=== PATIENT | male | born 1945 | race Asian ===

== ENCOUNTER 2021-12-14 15:54 | Inpatient (IN) | payer MEDICARE, MEDICAID ==
[~2021-12-14] VITALS: Ht 165.1 cm; Wt 67.1 kg
[2021-12-14 19:10] VITALS: BP 119/67
[2021-12-14] MEDS ORDERED: ACETAMINOPHEN 325 MG TABLET PO PRN (20:15)
[2021-12-14] MEDS: DOCUSATE SODIUM 100 MG CAPSULE PO SCH (20:29)
[2021-12-14] MEDS: MELATONIN 5 MG TABLET PO PRN (20:29)
[2021-12-14] MEDS: HEPARIN SODIUM,PORCINE 5,000 UNITS/ML VIAL SQ SCH (20:29)
[2021-12-14 20:30] VITALS: BP 123/71
[2021-12-14] MEDS ORDERED: OxyCODONE HCL 5 MG IR TABLET PO PRN (20:30)
[2021-12-14] MEDS: SENNA 187 MG TABLET PO SCH (20:30)
[2021-12-14] MEDS ORDERED: CYCLOBENZAPRINE HCL 10 MG TABLET PO PRN (20:30)
[2021-12-14] MEDS: GABAPENTIN 300 MG CAPSULE PO SCH (20:51)
[2021-12-14] MEDS: ETHYL ALCOHOL 62% ANTISEPTIC NASAL SANITIZER 0.6 ML AMPUL NASAL SCH (21:10)
[2021-12-14] MEDS: ACETAMINOPHEN 325 MG TABLET PO SCH (21:11)
[2021-12-15] MEDS: ACETAMINOPHEN 325 MG TABLET PO SCH ×3 (06:19→21:10)
[2021-12-15 07:31] LABS: BASOPHILS % (AUTO) 0.2 % (0.0-2.0); LYMPHOCYTES # (AUTO) 1.5 K/uL (1.0-4.8); LYMPHOCYTES % (AUTO) 14.2 % (22.0-44.0); MEAN CORPUSCULAR HEMOGLOBIN 29.9 pg (26.0-34.0); MEAN CORPUSCULAR HGB CONC 34.3 G/dL (31.0-37.0); MEAN CORPUSCULAR VOLUME 87 fL (80-100); MONOCYTES # (AUTO) 1.1 K/uL (0.1-1.0); MONOCYTES % (AUTO) 10.8 % (2.0-9.0); NEUTROPHILS # (AUTO) 7.7 K/uL (1.8-7.7); NEUTROPHILS % (AUTO) 72.8 % (40.0-70.0); PLATELET COUNT (AUTO) 262 K/uL (150-450); RED BLOOD CELL COUNT(AUTO) 3.34 MIL/uL (4.50-5.90); RED CELL DISTRIBUTION WIDTH 14.2 % (11.5-14.5)
[2021-12-15 07:54] LABS: ALANINE AMINOTRANSFERASE 110 U/L (12-78); ALBUMIN 2.5 g/dL (3.4-5.0); ALKALINE PHOSPHATASE 57 U/L (46-116); ANION GAP 7 mmol/L (8-16); ASPARTATE AMINOTRANSFERASE 71 U/L (15-37); BILIRUBIN,TOTAL 0.4 mg/dL (0.1-1.0); CALCIUM, TOTAL 8.3 mg/dL (8.8-10.5); CARBON DIOXIDE 27 mmol/L (22-29); CHLORIDE 103 mmol/L (98-107); CREATININE 0.64 mg/dL (0.60-1.30); GLUCOSE,RANDOM 101 mg/dL (70-110); POTASSIUM 4.2 mmol/L (3.5-5.1); SODIUM SERUM 137 mmol/L (136-145); TOTAL PROTEIN, SERUM 5.8 g/dL (6.4-8.2); UREA NITROGEN, BLOOD 16 mg/dL (7-18)
[2021-12-15 07:56] LABS: GLOMERULAR FILTR. RATE CALC > 60 mL/min (>60)
[2021-12-15] MEDS: LOSARTAN POTASSIUM 50 MG TABLET PO SCH (08:01)
[2021-12-15] MEDS: HEPARIN SODIUM,PORCINE 5,000 UNITS/ML VIAL SQ SCH ×3 (08:01→21:04)
[2021-12-15] MEDS: DOCUSATE SODIUM 100 MG CAPSULE PO SCH ×2 (08:01→21:03)
[2021-12-15] MEDS: TAMSULOSIN HCL 0.4 MG CAPSULE PO SCH (08:01)
[2021-12-15] MEDS: GABAPENTIN 300 MG CAPSULE PO SCH ×2 (08:01→21:03)
[2021-12-15] MEDS ORDERED: ASPIRIN 81 MG CHEWABLE TABLET PO SCH (09:00)
[2021-12-15 09:12] VITALS: BP 134/76
[2021-12-15] MEDS: GABAPENTIN 100 MG CAPSULE PO SCH (16:37)
[2021-12-15 17:31] LABS: COVID AG,FIA SOURCE NASAL SWAB
[2021-12-15 21:00] VITALS: BP 142/72
[2021-12-15] MEDS: SENNA 187 MG TABLET PO SCH (21:03)
[2021-12-15] MEDS: ETHYL ALCOHOL 62% ANTISEPTIC NASAL SANITIZER 0.6 ML AMPUL NASAL SCH (21:05)
[2021-12-16] MEDS ORDERED: HYDR25TA PO (01:01)
[2021-12-16] MEDS ORDERED: LOSA-382 PO (01:01)
[2021-12-16] MEDS ORDERED: EZET10TA57 PO (01:01)
[2021-12-16] MEDS: ACETAMINOPHEN 325 MG TABLET PO SCH ×3 (06:03→21:27)
[2021-12-16 07:14] LABS: CHOL/HDL RATIO 4.1 (4.2-7.3)
[2021-12-16 07:40] VITALS: BP 143/77
[2021-12-16] MEDS: TAMSULOSIN HCL 0.4 MG CAPSULE PO SCH (08:12)
[2021-12-16] MEDS: LOSARTAN POTASSIUM 50 MG TABLET PO SCH (08:12)
[2021-12-16] MEDS: DOCUSATE SODIUM 100 MG CAPSULE PO SCH ×2 (08:12→21:25)
[2021-12-16] MEDS: FAMOTIDINE 20 MG TABLET PO SCH (08:12)
[2021-12-16] MEDS: ETHYL ALCOHOL 62% ANTISEPTIC NASAL SANITIZER 0.6 ML AMPUL NASAL SCH ×2 (08:12→21:28)
[2021-12-16] MEDS: GABAPENTIN 100 MG CAPSULE PO SCH ×2 (08:12→15:28)
[2021-12-16] MEDS: HEPARIN SODIUM,PORCINE 5,000 UNITS/ML VIAL SQ SCH ×3 (08:13→21:27)
[2021-12-16 20:00] VITALS: BP 148/87
[2021-12-16] MEDS: GABAPENTIN 300 MG CAPSULE PO SCH (21:26)
[2021-12-16] MEDS: EZETIMIBE 10 MG TABLET PO SCH (21:26)
[2021-12-16] MEDS: SENNA 187 MG TABLET PO SCH (21:28)
[2021-12-17] MEDS: ACETAMINOPHEN 325 MG TABLET PO SCH ×3 (05:56→21:24)
[2021-12-17 07:44] LABS: ALANINE AMINOTRANSFERASE 80 U/L (12-78); ALBUMIN 2.7 g/dL (3.4-5.0); ALKALINE PHOSPHATASE 64 U/L (46-116); ANION GAP 7 mmol/L (8-16); ASPARTATE AMINOTRANSFERASE 31 U/L (15-37); BILIRUBIN,TOTAL 0.3 mg/dL (0.1-1.0); CALCIUM, TOTAL 8.7 mg/dL (8.8-10.5); CARBON DIOXIDE 27 mmol/L (22-29); CHLORIDE 101 mmol/L (98-107); CREATININE 0.62 mg/dL (0.60-1.30); GLUCOSE,RANDOM 110 mg/dL (70-110); SODIUM SERUM 135 mmol/L (136-145); TOTAL PROTEIN, SERUM 6.4 g/dL (6.4-8.2); UREA NITROGEN, BLOOD 12 mg/dL (7-18)
[2021-12-17 07:45] LABS: GLOMERULAR FILTR. RATE CALC > 60 mL/min (>60)
[2021-12-17 08:05] VITALS: BP 154/82
[2021-12-17] MEDS: ETHYL ALCOHOL 62% ANTISEPTIC NASAL SANITIZER 0.6 ML AMPUL NASAL SCH ×2 (08:17→21:41)
[2021-12-17] MEDS: TAMSULOSIN HCL 0.4 MG CAPSULE PO SCH (08:17)
[2021-12-17] MEDS: FAMOTIDINE 20 MG TABLET PO SCH (08:18)
[2021-12-17] MEDS: GABAPENTIN 100 MG CAPSULE PO SCH ×2 (08:18→16:33)
[2021-12-17] MEDS: DOCUSATE SODIUM 100 MG CAPSULE PO SCH ×2 (08:18→21:00)
[2021-12-17] MEDS: HEPARIN SODIUM,PORCINE 5,000 UNITS/ML VIAL SQ SCH ×3 (08:18→21:24)
[2021-12-17] MEDS: LOSARTAN POTASSIUM 50 MG TABLET PO SCH (08:18)
[2021-12-17 20:00] VITALS: BP 127/72
[2021-12-17] MEDS: SENNA 187 MG TABLET PO SCH (21:00)
[2021-12-17] MEDS: EZETIMIBE 10 MG TABLET PO SCH (21:24)
[2021-12-17] MEDS: GABAPENTIN 300 MG CAPSULE PO SCH (21:24)
[2021-12-18] MEDS: ACETAMINOPHEN 325 MG TABLET PO SCH ×3 (06:19→20:34)
[2021-12-18 07:40] VITALS: BP 158/78
[2021-12-18 08:12] LABS: APPEARANCE,URINE HAZY (CLEAR); BILIRUBIN,URINE NEGATIVE (NEGATIVE); GLUCOSE, URINE (UA) NEGATIVE (NEGATIVE); LEUKOCYTE ESTERASE ,URINE LARGE (NEGATIVE); NITRATE,URINE POSITIVE (NEGATIVE); OCCULT BLOOD,URINE SMALL (NEGATIVE); PH,URINE 6.5 (5.0-8.0); PROTEIN,URINE TRACE mg/dL (NEGATIVE); UROBILINOGEN,URINE <=1.0 mg/dL (<=1.0)
[2021-12-18 08:34] LABS: BACTERIA,URINE Many /HPF (None Seen); RBC,URINE 0-2 /HPF (0-2); SQUAMOUS EPITHELIAL CELL,UR Few /LPF (None Seen); WBC,URINE 26-50 /HPF (0-5)
[2021-12-18] MEDS: TAMSULOSIN HCL 0.4 MG CAPSULE PO SCH (08:35)
[2021-12-18] MEDS: DOCUSATE SODIUM 100 MG CAPSULE PO SCH ×2 (08:35→20:32)
[2021-12-18] MEDS: ETHYL ALCOHOL 62% ANTISEPTIC NASAL SANITIZER 0.6 ML AMPUL NASAL SCH ×2 (08:35→20:32)
[2021-12-18] MEDS: GABAPENTIN 100 MG CAPSULE PO SCH ×2 (08:36→16:14)
[2021-12-18] MEDS: LOSARTAN POTASSIUM 50 MG TABLET PO SCH (08:36)
[2021-12-18] MEDS: HEPARIN SODIUM,PORCINE 5,000 UNITS/ML VIAL SQ SCH ×3 (08:36→20:33)
[2021-12-18] MEDS: FAMOTIDINE 20 MG TABLET PO SCH (08:36)
[2021-12-18] MEDS ORDERED: ASPI-1444 PO (12:36)
[2021-12-18] MEDS ORDERED: GABA-529 PO (12:36)
[2021-12-18] MEDS ORDERED: GABA-1181 PO (12:36)
[2021-12-18] MEDS ORDERED: POLY119P3 PO (12:36)
[2021-12-18 20:01] VITALS: BP 142/75
[2021-12-18] MEDS: SENNA 187 MG TABLET PO SCH (20:33)
[2021-12-18] MEDS: EZETIMIBE 10 MG TABLET PO SCH (20:33)
[2021-12-18] MEDS: GABAPENTIN 300 MG CAPSULE PO SCH (20:33)
[2021-12-19] MEDS: ACETAMINOPHEN 325 MG TABLET PO SCH ×3 (06:30→21:13)
[2021-12-19 08:00] VITALS: BP 141/80
[2021-12-19] MEDS: TAMSULOSIN HCL 0.4 MG CAPSULE PO SCH (09:44)
[2021-12-19] MEDS: LOSARTAN POTASSIUM 50 MG TABLET PO SCH (09:44)
[2021-12-19] MEDS: FAMOTIDINE 20 MG TABLET PO SCH (09:44)
[2021-12-19] MEDS: ETHYL ALCOHOL 62% ANTISEPTIC NASAL SANITIZER 0.6 ML AMPUL NASAL SCH ×2 (09:45→21:12)
[2021-12-19] MEDS: HEPARIN SODIUM,PORCINE 5,000 UNITS/ML VIAL SQ SCH ×3 (09:45→21:13)
[2021-12-19] MEDS: DOCUSATE SODIUM 100 MG CAPSULE PO SCH ×2 (09:45→21:15)
[2021-12-19] MEDS: AmLODIPine BESYLATE 2.5 MG TABLET PO SCH (09:45)
[2021-12-19] MEDS: GABAPENTIN 100 MG CAPSULE PO SCH ×2 (09:49→16:34)
[2021-12-19] MEDS: NITROFURANTOIN MONOHYD/M-CRYST 100 MG CAPSULE [MACROBID] PO SCH ×2 (11:43→21:12)
[2021-12-19 20:10] VITALS: BP 140/74
[2021-12-19] MEDS: EZETIMIBE 10 MG TABLET PO SCH (21:12)
[2021-12-19] MEDS: SENNA 187 MG TABLET PO SCH (21:12)
[2021-12-19] MEDS: GABAPENTIN 300 MG CAPSULE PO SCH (21:13)
[2021-12-20] MEDS: ACETAMINOPHEN 325 MG TABLET PO SCH ×3 (06:19→21:18)
[2021-12-20 08:20] VITALS: BP 158/82
[2021-12-20] MEDS: FAMOTIDINE 20 MG TABLET PO SCH (09:11)
[2021-12-20] MEDS: GABAPENTIN 100 MG CAPSULE PO SCH ×2 (09:12→15:40)
[2021-12-20] MEDS: LOSARTAN POTASSIUM 50 MG TABLET PO SCH (09:12)
[2021-12-20] MEDS: NITROFURANTOIN MONOHYD/M-CRYST 100 MG CAPSULE [MACROBID] PO SCH ×2 (09:12→21:16)
[2021-12-20] MEDS: DOCUSATE SODIUM 100 MG CAPSULE PO SCH ×2 (09:12→21:16)
[2021-12-20] MEDS: TAMSULOSIN HCL 0.4 MG CAPSULE PO SCH (09:12)
[2021-12-20] MEDS: AmLODIPine BESYLATE 2.5 MG TABLET PO SCH (09:12)
[2021-12-20] MEDS: ETHYL ALCOHOL 62% ANTISEPTIC NASAL SANITIZER 0.6 ML AMPUL NASAL SCH ×2 (09:13→21:17)
[2021-12-20] MEDS: HEPARIN SODIUM,PORCINE 5,000 UNITS/ML VIAL SQ SCH ×2 (09:13→21:18)
[2021-12-20] MEDS: HYDROCHLOROTHIAZIDE 25 MG TABLET PO SCH (11:11)
[2021-12-20 20:00] VITALS: BP 135/67
[2021-12-20] MEDS: SENNA 187 MG TABLET PO SCH (21:16)
[2021-12-20] MEDS: GABAPENTIN 300 MG CAPSULE PO SCH (21:16)
[2021-12-20] MEDS: EZETIMIBE 10 MG TABLET PO SCH (21:16)
[2021-12-21] MEDS ORDERED: FAMO20 PO (02:30)
[2021-12-21] MEDS ORDERED: TAMS-13 PO (02:30)
[2021-12-21] MEDS: ACETAMINOPHEN 325 MG TABLET PO SCH ×3 (06:05→21:33)
[2021-12-21 07:25] VITALS: BP 144/75
[2021-12-21] MEDS: ETHYL ALCOHOL 62% ANTISEPTIC NASAL SANITIZER 0.6 ML AMPUL NASAL SCH ×2 (08:09→20:17)
[2021-12-21] MEDS: TAMSULOSIN HCL 0.4 MG CAPSULE PO SCH (08:09)
[2021-12-21] MEDS: GABAPENTIN 100 MG CAPSULE PO SCH ×2 (08:10→16:18)
[2021-12-21] MEDS: NITROFURANTOIN MONOHYD/M-CRYST 100 MG CAPSULE [MACROBID] PO SCH ×2 (08:10→20:18)
[2021-12-21] MEDS: DOCUSATE SODIUM 100 MG CAPSULE PO SCH ×2 (08:10→20:19)
[2021-12-21] MEDS: LOSARTAN POTASSIUM 50 MG TABLET PO SCH (08:10)
[2021-12-21] MEDS: FAMOTIDINE 20 MG TABLET PO SCH (08:11)
[2021-12-21] MEDS: HYDROCHLOROTHIAZIDE 25 MG TABLET PO SCH (08:11)
[2021-12-21] MEDS: ASPIRIN 81 MG CHEWABLE TABLET PO SCH (08:11)
[2021-12-21] MEDS: HEPARIN SODIUM,PORCINE 5,000 UNITS/ML VIAL SQ SCH ×2 (08:12→20:18)
[2021-12-21 20:00] VITALS: BP 132/82
[2021-12-21] MEDS: EZETIMIBE 10 MG TABLET PO SCH (20:18)
[2021-12-21] MEDS: SENNA 187 MG TABLET PO SCH (20:18)
[2021-12-21] MEDS: GABAPENTIN 300 MG CAPSULE PO SCH (20:19)
[2021-12-22] MEDS: ACETAMINOPHEN 325 MG TABLET PO SCH ×3 (06:05→21:29)
[2021-12-22] MEDS: TAMSULOSIN HCL 0.4 MG CAPSULE PO SCH (07:45)
[2021-12-22] MEDS: HEPARIN SODIUM,PORCINE 5,000 UNITS/ML VIAL SQ SCH ×2 (07:45→21:28)
[2021-12-22] MEDS: LOSARTAN POTASSIUM 50 MG TABLET PO SCH (07:45)
[2021-12-22] MEDS: HYDROCHLOROTHIAZIDE 25 MG TABLET PO SCH (07:45)
[2021-12-22] MEDS: FAMOTIDINE 20 MG TABLET PO SCH (07:46)
[2021-12-22] MEDS: DOCUSATE SODIUM 100 MG CAPSULE PO SCH ×2 (07:46→21:27)
[2021-12-22] MEDS: NITROFURANTOIN MONOHYD/M-CRYST 100 MG CAPSULE [MACROBID] PO SCH ×2 (07:46→21:27)
[2021-12-22] MEDS: ASPIRIN 81 MG CHEWABLE TABLET PO SCH (07:46)
[2021-12-22] MEDS: ETHYL ALCOHOL 62% ANTISEPTIC NASAL SANITIZER 0.6 ML AMPUL NASAL SCH ×2 (07:46→21:26)
[2021-12-22] MEDS: GABAPENTIN 100 MG CAPSULE PO SCH ×2 (07:46→15:21)
[2021-12-22 08:30] VITALS: BP 131/69
[2021-12-22 20:30] VITALS: BP 133/65
[2021-12-22] MEDS: EZETIMIBE 10 MG TABLET PO SCH (21:27)
[2021-12-22] MEDS: GABAPENTIN 300 MG CAPSULE PO SCH (21:27)
[2021-12-22] MEDS: SENNA 187 MG TABLET PO SCH (21:27)
[2021-12-23] MEDS: ACETAMINOPHEN 325 MG TABLET PO SCH ×3 (06:05→21:54)
[2021-12-23 07:25] LABS: ANION GAP 6 mmol/L (8-16); CALCIUM, TOTAL 8.8 mg/dL (8.8-10.5); CARBON DIOXIDE 30 mmol/L (22-29); CHLORIDE 100 mmol/L (98-107); CREATININE 0.68 mg/dL (0.60-1.30); GLUCOSE,RANDOM 104 mg/dL (70-110); POTASSIUM 3.9 mmol/L (3.5-5.1); SODIUM SERUM 136 mmol/L (136-145); UREA NITROGEN, BLOOD 15 mg/dL (7-18)
[2021-12-23 07:36] LABS: GLOMERULAR FILTR. RATE CALC > 60 mL/min (>60)
[2021-12-23 08:10] VITALS: BP 132/75
[2021-12-23] MEDS: ETHYL ALCOHOL 62% ANTISEPTIC NASAL SANITIZER 0.6 ML AMPUL NASAL SCH ×2 (08:55→20:31)
[2021-12-23] MEDS: NITROFURANTOIN MONOHYD/M-CRYST 100 MG CAPSULE [MACROBID] PO SCH ×2 (08:56→20:30)
[2021-12-23] MEDS: DOCUSATE SODIUM 100 MG CAPSULE PO SCH ×2 (08:56→20:30)
[2021-12-23] MEDS: ASPIRIN 81 MG CHEWABLE TABLET PO SCH (08:56)
[2021-12-23] MEDS: TAMSULOSIN HCL 0.4 MG CAPSULE PO SCH (08:56)
[2021-12-23] MEDS: GABAPENTIN 100 MG CAPSULE PO SCH ×2 (08:57→16:55)
[2021-12-23] MEDS: FAMOTIDINE 20 MG TABLET PO SCH (08:57)
[2021-12-23] MEDS: LOSARTAN POTASSIUM 50 MG TABLET PO SCH (08:57)
[2021-12-23] MEDS: HYDROCHLOROTHIAZIDE 25 MG TABLET PO SCH (08:57)
[2021-12-23] MEDS: HEPARIN SODIUM,PORCINE 5,000 UNITS/ML VIAL SQ SCH ×2 (08:58→20:31)
[2021-12-23 20:20] VITALS: BP 104/60
[2021-12-23] MEDS: GABAPENTIN 300 MG CAPSULE PO SCH (20:30)
[2021-12-23] MEDS: EZETIMIBE 10 MG TABLET PO SCH (20:30)
[2021-12-23] MEDS: SENNA 187 MG TABLET PO SCH (20:30)
[2021-12-23] MEDS: MELATONIN 5 MG TABLET PO PRN (20:31)
[2021-12-24] MEDS: ACETAMINOPHEN 325 MG TABLET PO SCH ×3 (06:12→21:47)
[2021-12-24] MEDS: HYDROCHLOROTHIAZIDE 25 MG TABLET PO SCH (08:41)
[2021-12-24] MEDS: ETHYL ALCOHOL 62% ANTISEPTIC NASAL SANITIZER 0.6 ML AMPUL NASAL SCH ×2 (08:41→20:10)
[2021-12-24] MEDS: ASPIRIN 81 MG CHEWABLE TABLET PO SCH (08:42)
[2021-12-24] MEDS: TAMSULOSIN HCL 0.4 MG CAPSULE PO SCH (08:42)
[2021-12-24] MEDS: GABAPENTIN 100 MG CAPSULE PO SCH ×2 (08:42→16:20)
[2021-12-24] MEDS: NITROFURANTOIN MONOHYD/M-CRYST 100 MG CAPSULE [MACROBID] PO SCH ×2 (08:42→20:11)
[2021-12-24] MEDS: LOSARTAN POTASSIUM 50 MG TABLET PO SCH (08:42)
[2021-12-24] MEDS: FAMOTIDINE 20 MG TABLET PO SCH (08:43)
[2021-12-24] MEDS: DOCUSATE SODIUM 100 MG CAPSULE PO SCH ×2 (08:43→20:10)
[2021-12-24] MEDS: HEPARIN SODIUM,PORCINE 5,000 UNITS/ML VIAL SQ SCH ×2 (08:43→20:12)
[2021-12-24 09:00] VITALS: BP 126/53
[2021-12-24] MEDS: SENNA 187 MG TABLET PO SCH (20:11)
[2021-12-24] MEDS: MELATONIN 5 MG TABLET PO PRN (20:11)
[2021-12-24] MEDS: EZETIMIBE 10 MG TABLET PO SCH (20:11)
[2021-12-24] MEDS: GABAPENTIN 300 MG CAPSULE PO SCH (20:13)
[2021-12-24 20:30] VITALS: BP 114/88
[2021-12-25] MEDS: ACETAMINOPHEN 325 MG TABLET PO SCH ×3 (05:16→21:19)
[2021-12-25 08:05] VITALS: BP 117/79
[2021-12-25] MEDS: ETHYL ALCOHOL 62% ANTISEPTIC NASAL SANITIZER 0.6 ML AMPUL NASAL SCH ×2 (08:46→21:19)
[2021-12-25] MEDS: DOCUSATE SODIUM 100 MG CAPSULE PO SCH ×2 (08:46→21:19)
[2021-12-25] MEDS: GABAPENTIN 100 MG CAPSULE PO SCH ×2 (08:46→14:34)
[2021-12-25] MEDS: FAMOTIDINE 20 MG TABLET PO SCH (08:47)
[2021-12-25] MEDS: LOSARTAN POTASSIUM 50 MG TABLET PO SCH (08:47)
[2021-12-25] MEDS: HYDROCHLOROTHIAZIDE 25 MG TABLET PO SCH (08:47)
[2021-12-25] MEDS: TAMSULOSIN HCL 0.4 MG CAPSULE PO SCH (08:47)
[2021-12-25] MEDS: ASPIRIN 81 MG CHEWABLE TABLET PO SCH (08:47)
[2021-12-25] MEDS: NITROFURANTOIN MONOHYD/M-CRYST 100 MG CAPSULE [MACROBID] PO SCH ×2 (08:47→21:19)
[2021-12-25] MEDS: HEPARIN SODIUM,PORCINE 5,000 UNITS/ML VIAL SQ SCH ×2 (08:48→21:19)
[2021-12-25 20:03] VITALS: BP 123/68
[2021-12-25] MEDS: EZETIMIBE 10 MG TABLET PO SCH (21:19)
[2021-12-25] MEDS: MELATONIN 5 MG TABLET PO PRN (21:19)
[2021-12-25] MEDS: SENNA 187 MG TABLET PO SCH (21:19)
[2021-12-25] MEDS: GABAPENTIN 300 MG CAPSULE PO SCH (21:20)
[2021-12-26] MEDS: ACETAMINOPHEN 325 MG TABLET PO SCH ×3 (05:57→20:17)
[2021-12-26] MEDS: TAMSULOSIN HCL 0.4 MG CAPSULE PO SCH (07:52)
[2021-12-26 08:01] VITALS: BP 137/81
[2021-12-26] MEDS: ETHYL ALCOHOL 62% ANTISEPTIC NASAL SANITIZER 0.6 ML AMPUL NASAL SCH ×2 (08:01→20:14)
[2021-12-26] MEDS: HYDROCHLOROTHIAZIDE 25 MG TABLET PO SCH (08:02)
[2021-12-26] MEDS: HEPARIN SODIUM,PORCINE 5,000 UNITS/ML VIAL SQ SCH ×2 (08:02→20:16)
[2021-12-26] MEDS: LOSARTAN POTASSIUM 50 MG TABLET PO SCH (08:03)
[2021-12-26] MEDS: GABAPENTIN 100 MG CAPSULE PO SCH ×2 (08:03→16:36)
[2021-12-26] MEDS: FAMOTIDINE 20 MG TABLET PO SCH (08:03)
[2021-12-26] MEDS: ASPIRIN 81 MG CHEWABLE TABLET PO SCH (08:03)
[2021-12-26] MEDS: DOCUSATE SODIUM 100 MG CAPSULE PO SCH ×2 (08:04→20:14)
[2021-12-26] MEDS: NITROFURANTOIN MONOHYD/M-CRYST 100 MG CAPSULE [MACROBID] PO SCH (08:06)
[2021-12-26] MEDS: MELATONIN 5 MG TABLET PO PRN (20:15)
[2021-12-26] MEDS: EZETIMIBE 10 MG TABLET PO SCH (20:15)
[2021-12-26] MEDS: GABAPENTIN 300 MG CAPSULE PO SCH (20:15)
[2021-12-26] MEDS: SENNA 187 MG TABLET PO SCH (20:15)
[2021-12-26 21:00] VITALS: BP 111/58
[2021-12-27] MEDS: ACETAMINOPHEN 325 MG TABLET PO SCH ×3 (06:04→20:39)
[2021-12-27 08:01] VITALS: BP 140/67
[2021-12-27] MEDS: TAMSULOSIN HCL 0.4 MG CAPSULE PO SCH (08:23)
[2021-12-27] MEDS: ETHYL ALCOHOL 62% ANTISEPTIC NASAL SANITIZER 0.6 ML AMPUL NASAL SCH ×2 (08:24→20:40)
[2021-12-27] MEDS: DOCUSATE SODIUM 100 MG CAPSULE PO SCH ×2 (08:24→20:36)
[2021-12-27] MEDS: LOSARTAN POTASSIUM 50 MG TABLET PO SCH (08:25)
[2021-12-27] MEDS: ASPIRIN 81 MG CHEWABLE TABLET PO SCH (08:25)
[2021-12-27] MEDS: GABAPENTIN 100 MG CAPSULE PO SCH ×2 (08:26→16:56)
[2021-12-27] MEDS: FAMOTIDINE 20 MG TABLET PO SCH (08:26)
[2021-12-27] MEDS: HYDROCHLOROTHIAZIDE 25 MG TABLET PO SCH (09:23)
[2021-12-27] MEDS: HEPARIN SODIUM,PORCINE 5,000 UNITS/ML VIAL SQ SCH ×2 (09:24→20:37)
[2021-12-27 20:00] VITALS: BP 113/55
[2021-12-27] MEDS: MELATONIN 5 MG TABLET PO PRN (20:36)
[2021-12-27] MEDS: EZETIMIBE 10 MG TABLET PO SCH (20:36)
[2021-12-27] MEDS: SENNA 187 MG TABLET PO SCH (20:36)
[2021-12-27] MEDS: GABAPENTIN 300 MG CAPSULE PO SCH (20:38)
[2021-12-28] MEDS: ACETAMINOPHEN 325 MG TABLET PO SCH ×3 (05:56→21:33)
[2021-12-28 07:30] VITALS: BP 126/65
[2021-12-28 08:01] LABS: BASOPHILS % (AUTO) 1.2 % (0.0-2.0); EOSINOPHILS % (AUTO) 1.8 % (1.0-6.0); HEMOGLOBIN 11.6 g/dL (13.5-17.5); LYMPHOCYTES # (AUTO) 1.6 K/uL (1.0-4.8); LYMPHOCYTES % (AUTO) 31.9 % (22.0-44.0); MEAN CORPUSCULAR HEMOGLOBIN 29.1 pg (26.0-34.0); MEAN CORPUSCULAR VOLUME 86 fL (80-100); MONOCYTES # (AUTO) 0.5 K/uL (0.1-1.0); MONOCYTES % (AUTO) 10.2 % (2.0-9.0); NEUTROPHILS # (AUTO) 2.8 K/uL (1.8-7.7); NEUTROPHILS % (AUTO) 54.9 % (40.0-70.0); PLATELET COUNT (AUTO) 488 K/uL (150-450); RED BLOOD CELL COUNT(AUTO) 3.97 MIL/uL (4.50-5.90); RED CELL DISTRIBUTION WIDTH 14.7 % (11.5-14.5)
[2021-12-28 08:17] LABS: ANION GAP 4 mmol/L (8-16); CALCIUM, TOTAL 8.8 mg/dL (8.8-10.5); CARBON DIOXIDE 31 mmol/L (22-29); CHLORIDE 102 mmol/L (98-107); GLOMERULAR FILTR. RATE CALC > 60 mL/min (>60); GLUCOSE,RANDOM 104 mg/dL (70-110); POTASSIUM 4.1 mmol/L (3.5-5.1); SODIUM SERUM 137 mmol/L (136-145); UREA NITROGEN, BLOOD 18 mg/dL (7-18)
[2021-12-28] MEDS: TAMSULOSIN HCL 0.4 MG CAPSULE PO SCH (08:38)
[2021-12-28] MEDS: ASPIRIN 81 MG CHEWABLE TABLET PO SCH (08:38)
[2021-12-28] MEDS: ETHYL ALCOHOL 62% ANTISEPTIC NASAL SANITIZER 0.6 ML AMPUL NASAL SCH ×2 (08:38→20:37)
[2021-12-28] MEDS: DOCUSATE SODIUM 100 MG CAPSULE PO SCH ×2 (08:38→20:37)
[2021-12-28] MEDS: LOSARTAN POTASSIUM 50 MG TABLET PO SCH (08:39)
[2021-12-28] MEDS: GABAPENTIN 100 MG CAPSULE PO SCH ×2 (08:39→16:14)
[2021-12-28] MEDS: FAMOTIDINE 20 MG TABLET PO SCH (08:39)
[2021-12-28] MEDS: HEPARIN SODIUM,PORCINE 5,000 UNITS/ML VIAL SQ SCH ×2 (08:40→20:39)
[2021-12-28] MEDS: HYDROCHLOROTHIAZIDE 25 MG TABLET PO SCH (08:40)
[2021-12-28 15:15] LABS: APPEARANCE,URINE CLEAR (CLEAR); BILIRUBIN,URINE NEGATIVE (NEGATIVE); GLUCOSE, URINE (UA) NEGATIVE (NEGATIVE); KETONES,URINE NEGATIVE (NEGATIVE); LEUKOCYTE ESTERASE ,URINE NEGATIVE (NEGATIVE); NITRATE,URINE NEGATIVE (NEGATIVE); OCCULT BLOOD,URINE NEGATIVE (NEGATIVE); PROTEIN,URINE NEGATIVE (NEGATIVE); SPECIFIC GRAVITIY, URINE 1.024 (1.003-1.030)
[2021-12-28 15:22] LABS: AMORPHOUS SEDIMENT,UR Few /LPF (None Seen); BACTERIA,URINE Few /HPF (None Seen); RBC,URINE 0-2 /HPF (0-2); SQUAMOUS EPITHELIAL CELL,UR Few /LPF (None Seen); WBC,URINE 0-2 /HPF (0-5)
[2021-12-28 20:00] VITALS: BP 121/71
[2021-12-28] MEDS: SENNA 187 MG TABLET PO SCH (20:37)
[2021-12-28] MEDS: EZETIMIBE 10 MG TABLET PO SCH (20:37)
[2021-12-28] MEDS: GABAPENTIN 300 MG CAPSULE PO SCH (20:38)
[2021-12-29] MEDS ORDERED: ACET-2247 PO (03:34)
[2021-12-29] MEDS ORDERED: SENN8.8S18 PO (03:45)
[2021-12-29] MEDS ORDERED: SENN8.6T90 PO (03:47)
[2021-12-29] MEDS: ACETAMINOPHEN 325 MG TABLET PO SCH ×3 (06:06→21:05)
[2021-12-29] MEDS: HEPARIN SODIUM,PORCINE 5,000 UNITS/ML VIAL SQ SCH ×2 (07:29→21:06)
[2021-12-29] MEDS: ASPIRIN 81 MG CHEWABLE TABLET PO SCH (07:32)
[2021-12-29] MEDS: HYDROCHLOROTHIAZIDE 25 MG TABLET PO SCH (07:33)
[2021-12-29] MEDS: TAMSULOSIN HCL 0.4 MG CAPSULE PO SCH (07:33)
[2021-12-29] MEDS: GABAPENTIN 100 MG CAPSULE PO SCH ×2 (07:33→15:58)
[2021-12-29] MEDS: FAMOTIDINE 20 MG TABLET PO SCH (07:33)
[2021-12-29] MEDS: DOCUSATE SODIUM 250 MG CAPSULE PO SCH ×2 (07:33→21:05)
[2021-12-29] MEDS: ETHYL ALCOHOL 62% ANTISEPTIC NASAL SANITIZER 0.6 ML AMPUL NASAL SCH ×2 (07:33→21:04)
[2021-12-29] MEDS: LOSARTAN POTASSIUM 50 MG TABLET PO SCH (07:33)
[2021-12-29 08:09] VITALS: BP 124/68
[2021-12-29 20:00] VITALS: BP 109/63
[2021-12-29] MEDS: EZETIMIBE 10 MG TABLET PO SCH (21:04)
[2021-12-29] MEDS: GABAPENTIN 300 MG CAPSULE PO SCH (21:05)
[2021-12-29] MEDS: SENNA 187 MG TABLET PO SCH (21:06)
[2021-12-30] MEDS: ACETAMINOPHEN 325 MG TABLET PO SCH ×3 (06:09→21:04)
[2021-12-30] MEDS: HEPARIN SODIUM,PORCINE 5,000 UNITS/ML VIAL SQ SCH ×2 (07:25→20:45)
[2021-12-30] MEDS: LOSARTAN POTASSIUM 50 MG TABLET PO SCH (07:28)
[2021-12-30] MEDS: GABAPENTIN 100 MG CAPSULE PO SCH ×2 (07:28→16:17)
[2021-12-30] MEDS: DOCUSATE SODIUM 250 MG CAPSULE PO SCH ×2 (07:28→20:44)
[2021-12-30] MEDS: HYDROCHLOROTHIAZIDE 25 MG TABLET PO SCH (07:28)
[2021-12-30] MEDS: FAMOTIDINE 20 MG TABLET PO SCH (07:28)
[2021-12-30] MEDS: TAMSULOSIN HCL 0.4 MG CAPSULE PO SCH (07:28)
[2021-12-30] MEDS: ETHYL ALCOHOL 62% ANTISEPTIC NASAL SANITIZER 0.6 ML AMPUL NASAL SCH ×2 (07:28→20:44)
[2021-12-30] MEDS: ASPIRIN 81 MG CHEWABLE TABLET PO SCH (07:28)
[2021-12-30 08:19] VITALS: BP 113/64
[2021-12-30 20:13] VITALS: BP 126/71
[2021-12-30] MEDS: GABAPENTIN 300 MG CAPSULE PO SCH (20:44)
[2021-12-30] MEDS: SENNA 187 MG TABLET PO SCH (20:44)
[2021-12-30] MEDS: EZETIMIBE 10 MG TABLET PO SCH (20:45)
[2021-12-31] MEDS: ACETAMINOPHEN 325 MG TABLET PO SCH ×3 (06:19→20:44)
[2021-12-31] MEDS: HEPARIN SODIUM,PORCINE 5,000 UNITS/ML VIAL SQ SCH ×2 (07:16→20:43)
[2021-12-31] MEDS: FAMOTIDINE 20 MG TABLET PO SCH (07:20)
[2021-12-31] MEDS: HYDROCHLOROTHIAZIDE 25 MG TABLET PO SCH (07:20)
[2021-12-31] MEDS: GABAPENTIN 100 MG CAPSULE PO SCH ×2 (07:20→15:39)
[2021-12-31] MEDS: ETHYL ALCOHOL 62% ANTISEPTIC NASAL SANITIZER 0.6 ML AMPUL NASAL SCH ×2 (07:20→20:42)
[2021-12-31] MEDS: LOSARTAN POTASSIUM 50 MG TABLET PO SCH (07:20)
[2021-12-31] MEDS: TAMSULOSIN HCL 0.4 MG CAPSULE PO SCH (07:20)
[2021-12-31] MEDS: DOCUSATE SODIUM 250 MG CAPSULE PO SCH ×2 (07:21→20:42)
[2021-12-31] MEDS: ASPIRIN 81 MG CHEWABLE TABLET PO SCH (07:21)
[2021-12-31 09:07] VITALS: BP 125/67
[2021-12-31] MEDS ORDERED: FAMO20 PO (10:04)
[2021-12-31] MEDS ORDERED: GABA-1181 PO (10:04)
[2021-12-31] MEDS ORDERED: ACET325T51 PO (10:04)
[2021-12-31] MEDS ORDERED: DOCU-350 PO (10:04)
[2021-12-31] MEDS ORDERED: HYDR25TA PO (10:04)
[2021-12-31] MEDS ORDERED: LOSA-382 PO (10:04)
[2021-12-31] MEDS ORDERED: GABA-1216 PO (10:04)
[2021-12-31] MEDS ORDERED: ASPI81 PO (10:04)
[2021-12-31] MEDS ORDERED: TAMS-13 PO (10:04)
[2021-12-31] MEDS ORDERED: EZET10TA57 PO (10:04)
[2021-12-31 20:02] VITALS: BP 123/67
[2021-12-31] MEDS: EZETIMIBE 10 MG TABLET PO SCH (20:43)
[2021-12-31] MEDS: GABAPENTIN 300 MG CAPSULE PO SCH (20:43)
[2021-12-31] MEDS: SENNA 187 MG TABLET PO SCH (20:43)
[2021-12-31] MEDS: MELATONIN 5 MG TABLET PO PRN (20:44)
[2022-01-01] MEDS: ACETAMINOPHEN 325 MG TABLET PO SCH (06:16)
[2022-01-01 07:40] VITALS: BP 136/71
[2022-01-01] MEDS: ASPIRIN 81 MG CHEWABLE TABLET PO SCH (08:31)
[2022-01-01] MEDS: TAMSULOSIN HCL 0.4 MG CAPSULE PO SCH (08:31)
[2022-01-01] MEDS: ETHYL ALCOHOL 62% ANTISEPTIC NASAL SANITIZER 0.6 ML AMPUL NASAL SCH (08:31)
[2022-01-01] MEDS: GABAPENTIN 100 MG CAPSULE PO SCH (08:32)
[2022-01-01] MEDS: HYDROCHLOROTHIAZIDE 25 MG TABLET PO SCH (08:32)
[2022-01-01] MEDS: DOCUSATE SODIUM 250 MG CAPSULE PO SCH (08:32)
[2022-01-01] MEDS: LOSARTAN POTASSIUM 50 MG TABLET PO SCH (08:32)
[2022-01-01] MEDS: FAMOTIDINE 20 MG TABLET PO SCH (08:33)
[2022-01-01] MEDS: HEPARIN SODIUM,PORCINE 5,000 UNITS/ML VIAL SQ SCH (08:33)
== END 2022-01-01 11:40 | disposition home or self-care (01) | DRG 91 ==
LOC: 2WR 18:15
PROVIDERS: ADMIT Physical Medicine & Rehabilitation; ATTEND Physical Medicine & Rehabilitation
DX: G95.89 Other specified diseases of spinal cord (principal); G82.50 Quadriplegia, unspecified; E87.1 Hypo-osmolality and hyponatremia; N39.0 Urinary tract infection, site not specified; D64.9 Anemia, unspecified; G47.00 Insomnia, unspecified; E78.5 Hyperlipidemia, unspecified; I10 Essential (primary) hypertension; Z20.822 Contact with and (suspected) exposure to COVID-19; K59.00 Constipation, unspecified; M54.9 Dorsalgia, unspecified; M62.838 Other muscle spasm; M48.062 Spinal stenosis, lumbar region with neurogenic claudication; G89.29 Other chronic pain; M54.59 Other low back pain; N40.1 Benign prostatic hyperplasia with lower urinary tract symptoms; R33.9 Retention of urine, unspecified; M62.81 Muscle weakness (generalized); E66.9 Obesity, unspecified; Z82.49 Family history of ischemic heart disease and other diseases of the circulatory system; Z98.1 Arthrodesis status; Z79.899 Other long term (current) drug therapy; Z68.24 Body mass index [BMI] 24.0-24.9, adult
CPT/HCPCS: 80048; 80053; 80061; 81001; 85025; 87081; 87086; 87186; 97110; 97112; 97116; 97150; 97163; 97167; 97530; 97535; 99366; J1644; Q9967